=== PATIENT | female | born 1955 | race Caucasian/White ===

== ENCOUNTER 2017-11-25 21:38 | Emergency (ER) | payer MEDICARE, MEDICAID ==
[~2017-11-25] VITALS: Ht 147.3 cm; Wt 70.0 kg
[~2017-11-25 21:38] MED LIST: BACL-19 PO; BUDE10.2 INH; CITA20TA5 PO; CLON-364 PO; GABA800T2 PO; MONT10TA9 PO; MULT-658 PO; NAPR500T4 PO; TIOT18CA INH; TRAZ300T2 PO
[2017-11-25] MEDS ORDERED: ALBUTEROL/IPRATROPIUM 2.5MG/0.5MG, 3 ML ONE (22:48)
[2017-11-25] MEDS ORDERED: methylPREDNISolone SOD SUCC 125 MG/2 ML IVP ONE (23:00)
[2017-11-25] MEDS ORDERED: ALBUTEROL/IPRATROPIUM 2.5MG/0.5MG, 3 ML NPPB ONE (23:00)
[2017-11-25] MEDS ORDERED: methylPREDNISolone SOD SUCC 125 MG/2 ML ONE (23:01)
[2017-11-25 23:20] LABS: BASOPHILS # (AUTO) 0.04 x10^3/uL (0-0.1); BASOPHILS % (AUTO) 1 % (0-1); EOSINOPHILS % (AUTO) 3 % (1-7); LYMPHOCYTES # (AUTO) 2.93 x10^3/uL (1-3.4); LYMPHOCYTES % (AUTO) 36 % (22-44); MD NO; MEAN CORPUSCULAR HEMOGLOBIN 32.9 pg (27.0-34.8); MEAN CORPUSCULAR HGB CONC 33.1 g/dL (32.4-35.8); MEAN CORPUSCULAR VOLUME 99.3 fL (80-100); MEAN PLATELET VOLUME 6.7 fL (7.4-10.4); MONOCYTES # (AUTO) 0.89 x10^3/uL (0.2-0.8); MONOCYTES % (AUTO) 11 % (2-9); NEUTROPHILS # (AUTO) 4.21 x10^3/uL (1.8-6.8); NEUTROPHILS % (AUTO) 51 % (42-75); PLATELET COUNT 252 x10^3/uL (130-400); RED BLOOD COUNT 4.24 x10^6/uL (3.82-5.3); RED CELL DISTRIBUTION WIDTH 14.9 % (9.6-15.2)
[2017-11-25 23:31] LABS: ALBUMIN 3.7 g/dL (3.4-5.0); ANION GAP 6 mmol/L (5-15); CALCIUM 8.9 mg/dL (8.5-10.1); CHLORIDE 108 mmol/L (98-107); CREATININE 1.08 mg/dL (0.55-1.02)
[2017-11-26] MEDS ORDERED: ALBUTEROL/IPRATROPIUM 2.5MG/0.5MG, 3 ML NPPB ONE (01:00)
[2017-11-26 01:27] VITALS: BP 110/60
== END 2017-11-26 01:40 | disposition home or self-care (01) ==
LOC: ED 11-26 01:22
DX: J44.1 Chronic obstructive pulmonary disease with (acute) exacerbation (principal); E11.9 Type 2 diabetes mellitus without complications; F17.210 Nicotine dependence, cigarettes, uncomplicated
CPT/HCPCS: 36415; 71045; 80048; 82040; 83605; 85025; 87040; 94640; 96374; 99285; J2930; J7620

== ENCOUNTER 2017-11-29 23:31 | Emergency (ER) | payer MEDICARE, MEDICAID ==
[~2017-11-29] VITALS: Ht 147.3 cm; Wt 58.0 kg
[2017-11-29] MEDS ORDERED: HYDROmorphone 2 MG/ML, 1ML ONE (23:58)
[2017-11-29] MEDS ORDERED: DIAZEPAM 5 MG TABLET ONE (23:58)
[2017-11-30] MEDS ORDERED: DIAZEPAM 5 MG TABLET PO ONE
[2017-11-30] MEDS ORDERED: HYDROmorphone 1 MG/ML, 1ML IVPush PRN
[2017-11-30 00:44] VITALS: BP 131/74
[2017-11-30] MEDS ORDERED: ZIPRASIDONE 20 MG INJ IM ONE (01:00)
== END 2017-11-30 01:03 | disposition home or self-care (01) ==
LOC: ED 23:59
DX: S16.1XXA Strain of muscle, fascia and tendon at neck level, initial encounter (principal); J44.9 Chronic obstructive pulmonary disease, unspecified; E11.9 Type 2 diabetes mellitus without complications; F17.200 Nicotine dependence, unspecified, uncomplicated; Z90.49 Acquired absence of other specified parts of digestive tract; G89.29 Other chronic pain; Z88.6 Allergy status to analgesic agent; Z88.5 Allergy status to narcotic agent; X58.XXXA Exposure to other specified factors, initial encounter; Y93.89 Activity, other specified; Y92.89 Other specified places as the place of occurrence of the external cause; Y99.9 Unspecified external cause status
CPT/HCPCS: 96374; 99284; J1170; 96372

== ENCOUNTER → 2020-08-27 | Outpatient (CLI) | payer MEDICARE, MEDICAID ==
[~2020-08-27] MED LIST changes: -CITA20TA5 PO; +CITA20TA6 PO; -GABA800T2 PO; +GABA800T5 PO; +MONT10TA11 PO; -MONT10TA9 PO; +NAPR-685 PO; -NAPR500T4 PO
== END | disposition home or self-care (01) ==
LOC: CFH 13:46
PROVIDERS: ATTEND Internal Medicine
DX: Z12.2 Encounter for screening for malignant neoplasm of respiratory organs (principal); J43.8 Other emphysema; J98.11 Atelectasis; J98.4 Other disorders of lung; F17.210 Nicotine dependence, cigarettes, uncomplicated
CPT/HCPCS: G0297